=== PATIENT | female | born 1990 | race Caucasian/White ===

== ENCOUNTER 2016-11-28 09:40 | Emergency (ER) | payer BC, MEDICAID ==
[~2016-11-28] VITALS: Ht 172.7 cm; Wt 68.0 kg
[~2016-11-28 09:40] MED LIST: CIPROFLOXACIN500 M2 ORAL; IBUPROFEN600 MG ORAL; KEFLEX500 MG ORAL; NORCO 5-325 TA1 EACH ORAL; PHENAZOPYRIDIN200 MG ORAL
[2016-11-28] MEDS ORDERED: CLARITIN-D 241 EACH PO (10:06)
[2016-11-28 10:12] VITALS: BP 120/87
--- NOTE | 2016-11-28 10:12 | Emergency Room Report ---
History of Present Illness General Chief Complaint: Earache Source: Patient Present Illness HPI This is a 26-year-old female presented after having increased ear fullness and discomfort. The patient gradual onset of symptoms. She was noted to have some changes in her hearing. She states that she feels like there some fluid in her ears. She had denies recent activities in the water. She states that she's had some issues with nasal congestion. She denies sore throat. She has not been taking medications. Allergies: Coded Allergies: EPINEPHRINE (Unverified Allergy, Unknown, 11/17/14) Patient History Past Medical History: see triage record Last Menstrual Period: n/a depo Now: No Reviewed Nursing Documentation: PMH: Agreed, PSxH: Agreed Nursing Documentation-PMH Past Medical History: No Stated History Hx Gastrointestinal Problems: No - UTI DIAGNOSED 11/17/14 Review of Systems All Other Systems: negative except mentioned in HPI Physical Exam Vital Signs Date Time Temp Pulse Resp B/P Pulse Ox O2 Delivery O2 Flow Rate FiO2 11/28/16 09:54 98.4 72 16 120/87 98 Room Air General Appearance: well appearing, no apparent distress, alert, GCS 15 Head: normocephalic, atraumatic ENT: hearing grossly normal, normal voice Neck: full range of motion, supple Respiratory: no respiratory distress, speaking full sentences Musculoskeletal: no calf tenderness Neurologic: normal gait Psychiatric: mood/affect normal Skin: no rash Medical Decision Making Diagnostic Impression: Primary Impression: Earache symptoms in both ears ER Course Patient presented for ear pain. Differential diagnosis included was not limited to otitis media, malignant otitis externa, foreign body, cellulitis, mastoiditis, carotid dissection, myocardial infarction among others. Patient' s benign exam and does not appear to require any further imaging or laboratory testing at this time. The patient does not appear to have any erythema her TMs and there is no impacted cerumen. The patient appears have some signs of seasonal allergies. The patient was given prescription for Claritin D. she is advised followup with her primary care physician as needed. Chest X-Ray Diagnostic Results Chest X-Ray Ordered: No Last Vital Signs Date Time Temp Pulse Resp B/P Pulse Ox O2 Delivery O2 Flow Rate FiO2 11/28/16 09:54 98.4 72 16 120/87 98 Room Air Status: improved Disposition: HOME, SELF-CARE Condition: Stable Scripts Loratadine/Pseudoephedrine (CLARITIN-D 24 HOUR TABLET) 1 Each Tab.er.24h 1 TAB PO DAILY, #30 TAB Prov: Geovnay Baez 11/28/16 Patient Instructions: Serous Otitis Media Geovnay Baez Nov 28, 2016 10:12
[2016-11-28 10:17] VITALS: BP 120/87
== END 2016-11-28 10:30 | disposition home or self-care (01) ==
LOC: EMR 10:10
DX: H92.03 Otalgia, bilateral (principal); R09.81 Nasal congestion; Z88.8 Allergy status to other drugs, medicaments and biological substances
CPT/HCPCS: 99283

== ENCOUNTER 2019-12-25 18:58 | Emergency (ER) | payer BC, MEDICAID ==
[~2019-12-25] VITALS: Ht 172.7 cm; Wt 68.0 kg
[~2019-12-25 18:58] MED LIST changes: +CLARITIN-D 241 EACH PO
--- NOTE | 2019-12-25 19:15 | NUR ---
ED Nurse Note: Report given to DAWIT Dobson. Patient's HR 78 with pulse oximetry reading 100% on room air.
[2019-12-25 19:20] VITALS: BP 120/85
--- NOTE | 2019-12-25 19:20 | NUR ---
ED Nurse Note: Pt walked into ED from home for c/o SOB x 1 week and intermittent palpitations. Pt notes she has been increasingly weak and feels extremely SOB with any exertion. 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 Pt is aaox4. No fever noted upon triage and HR is in the 70's. Pt appears mildly short of breath when speaking in full sentences, but oxygen saturation is 98% on RA. No accessory muscle use noted when breathing. Pt is ambulatory with steady gait. No acute distress noted. IV line established, blood drawn and sent to lab. Will continue to monitor.
[2019-12-25 19:44] LABS: BASOPHILS % (AUTO) 1.4 % (0.0-2.0); EOSINOPHILS % (AUTO) 1.2 % (0.0-3.0); HEMATOCRIT 42.9 % (37.0-47.0); HEMOGLOBIN 14.1 G/DL (12.0-16.0); LYMPHOCYTES % (AUTO) 28.8 % (20.0-45.0); MEAN CORPUSCULAR VOLUME 84 FL (80-99); MONOCYTES % (AUTO) 6.3 % (1.0-10.0); NEUTROPHILS % (AUTO) 62.4 % (45.0-75.0); PLATELET COUNT 190 K/UL (150-450); RED BLOOD COUNT 5.11 M/UL (4.20-5.40); WHITE BLOOD COUNT 8.7 K/UL (4.8-10.8)
[2019-12-25 19:49] LABS: ANION GAP 14 mmol/L (5-15); APPEARANCE,URINE CLEAR; BILIRUBIN, URINE NEGATIVE (NEGATIVE); BLOOD UREA NITROGEN 13 mg/dL (7-18); CARBON DIOXIDE 24 MMOL/L (21-32); CHLORIDE 103 MMOL/L (98-107); COLOR,URINE YELLOW; CREATININE 0.7 MG/DL (0.55-1.30); GLUCOSE, URINE (UA) NEGATIVE (NEGATIVE); KETONES,URINE 1+ (NEGATIVE); LEUKOCYTE ESTERASE ,URINE 3+ (NEGATIVE); NITRITE,URINE NEGATIVE (NEGATIVE); PH,URINE 7 (4.5-8.0); POTASSIUM 3.8 MMOL/L (3.5-5.1); PROTEIN,URINE NEGATIVE (NEGATIVE); SODIUM 141 MMOL/L (136-145); UROBILINOGEN,URINE NORMAL MG/DL (0.0-1.0)
[2019-12-25 19:59] LABS: ALANINE AMINOTRANSFERASE 14 U/L (12-78); ALBUMIN 4.6 G/DL (3.4-5.0); ALBUMIN/GLOBULIN RATIO 1.5 (1.0-2.7); ALKALINE PHOSPHATASE 75 U/L (46-116); ASPARTATE AMINO TRANSFERASE 13 U/L (15-37); BILIRUBIN,TOTAL 0.4 MG/DL (0.2-1.0); CREATINE KINASE 36 U/L (26-308)
--- NOTE | 2019-12-25 20:00 | NUR ---
ED Nurse Note: Pt is sitting in RME room, no acute distress. IV fluids are infusing. Pt HR remains stable at 79. Will continue to monitor.
--- NOTE | 2019-12-25 20:20 | Emergency Room Report ---
History of Present Illness General Chief Complaint: Dyspnea/Respdistress Source: Patient Present Illness HPI 29-year-old female with no signal past medical history here complaining of 1 week of intermittent palpitation and shortness of breath with exertion. Denies any chest pain, abdominal pain, nausea vomiting diarrhea. Denies any loss of taste and smell, cough or congestion. 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 Denies any urinary symptoms. Denies . Denies tobacco smoke, drug use, alcohol intake. Is sitting comfortably with stable vital signs. O2 sat and temperature within normal limits. Reports that the shortness of breath is mainly worse when walking and waking up in the morning. Patient reports that after taking few deep breaths she feels better. Denies feeling better by putting. Denies any acid reflux and eating spicy acidic food. Denies constant palpitation. Denies any cardiac history. Reported palpitations usually in the middle of the night and is only intermittent. Denies lower leg edema or tightness. Allergies: Coded Allergies: No Known Allergies (Unverified , 12/25/19) COVID-19 Screening Contact w/high risk pt: No Recent Travel to affected area: No Experienced COVID-19 symptoms?: Yes COVID-19 symptoms experienced: Shortness of Breath COVID-19 Testing performed GANG PUSHER: No - 2 months ago COVID-19 Screening: Negative COVID-19 COVID-19 Testing Source: blood test Patient History Past Medical History: see triage record Past Surgical History: none Pertinent Family History: none Last Menstrual Period: 3 weeks ago Now: No Immunizations: UTD Reviewed Nursing Documentation: PMH: Agreed; PSxH: Agreed Nursing Documentation-PMH Past Medical History: No Stated History Hx Gastrointestinal Problems: No - UTI DIAGNOSED 11/17/14 Review of Systems All Other Systems: negative except mentioned in HPI Physical Exam Vital Signs Date Time Temp Pulse Resp B/P (MAP) Pulse Ox O2 Delivery O2 Flow Rate FiO2 12/25/19 19:00 97.9 78 16 120/85 (97) 98 Room Air Sp02 EP Interpretation: reviewed, normal General Appearance: no apparent distress, alert, GCS 15, non-toxic Head: normocephalic, atraumatic Eyes: bilateral eye normal inspection, bilateral eye PERRL ENT: hearing grossly normal, normal pharynx, no angioedema, normal voice Neck: full range of motion, supple/symm/no masses Respiratory: chest non-tender, lungs clear, normal breath sounds, no rhonchi, no respiratory distress, no wheezing, speaking full sentences Cardiovascular #1: regular rate, rhythm, no edema Gastrointestinal: normal bowel sounds, non tender, soft, non-distended, no guarding, no rebound Rectal: deferred Genitourinary: no CVA tenderness Musculoskeletal: back normal, no calf tenderness Neurologic: alert, motor strength/tone normal, oriented x3, sensory intact, responsive, speech normal Psychiatric: judgement/insight normal, memory normal, mood/affect normal, no suicidal/homicidal ideation Skin: no rash Lymphatic: no adenopathy Medical Decision Making PA Attestation All diagnoses and treatment plans were reviewed and discussed with my supervising physician Dr. Barrow Diagnostic Impression: Primary Impression: SOB (shortness of breath) Additional Impressions: Palpitation UTI (lower urinary tract infection) ER Course 29-year-old female with no signal past medical history here complaining of 1 week of intermittent palpitation and shortness of breath with exertion. Denies any chest pain, abdominal pain, nausea vomiting diarrhea. Denies any loss of taste and smell, cough or congestion. 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 Denies any urinary symptoms. Denies . Denies tobacco smoke, drug use, alcohol intake. Is sitting comfortably with stable vital signs. O2 sat and temperature within normal limits. Reports that the shortness of breath is mainly worse when walking and waking up in the morning. Patient reports that after taking few deep breaths she feels better. Denies feeling better by putting. Denies any acid reflux and eating spicy acidic food. Denies constant palpitation. Denies any cardiac history. Reported palpitations usually in the middle of the night and is only intermittent. Denies lower leg edema or tightness. Ddx considered but are not limited to: VT, Angina, COPD, GERD, palpitation, shortness of breath, coronavirus Vital signs: are WNL, pt. is afebrile H&PE are most consistent with shortness of breath, palpitation, UTI ORDERS: EKG, Chest XR, cardiac labs, rapid COVID testing, d-dimer Macrobid ED INTERVENTIONS: NS bolus DISCHARGE: At this time pt. is stable for d/c to home. Will provide printed patient care instructions, and any necessary prescriptions. Care plan and follow up instructions have been discussed with the patient prior to discharge. Advised patient to follow primary doctor for referral to electronic warfare operator, at this time no medications needed for palpitation patient to be followed up for echocardiogram by electronic warfare operator, if worsening symptoms return to the emergency room. EKG Diagnostic Results Rate: normal Rhythm: NSR ST Segments: no acute changes Other Impression No acute ST changes Chest X-Ray Diagnostic Results Chest X-Ray Diagnostic Results : Chest X-Ray Ordered: Yes # of Views/Limited/Complete: 1 View Indication: Shortness of Breath EP Interpretation: Yes IVY Xray: Interpretation reviewed, by supervising MD, and agrees with findings. Interpretation: no consolidation, no effusion, no pneumothorax Impression: No acute disease Electronically Signed by: Debbie Howard PA-C Last Vital Signs Date Time Temp Pulse Resp B/P (MAP) Pulse Ox O2 Delivery O2 Flow Rate FiO2 12/25/19 19:00 97.9 78 16 120/85 (97) 98 Room Air Disposition: HOME, SELF-CARE Condition: Stable Scripts Nitrofurantoin Monohyd/M-Cryst* (MACROBID 100 MG*) 100 Mg Capsule 100 MG ORAL EVERY 12 HOURS for 7 Days, #14 CAP Prov: Debbie Medina 12/25/19 Referrals: [facility],REFERRING (PCP) Patient Instructions: Palpitations, [id number], Shortness of Breath, Easy-to- Read, Urinary Tract Infection, [id number] Additional Instructions: increase oral hydration. see primary care provider for follow up and referral to electronic warfare operator. return to the ER if worsening symptoms. Debbie Medina Dec 25, 2019 20:20
[2019-12-25] MEDS ORDERED: NITROFURANTOIN100 M2 ORAL (20:21)
[2019-12-25 20:35] VITALS: BP 115/79
--- NOTE | 2019-12-25 20:35 | NUR ---
ER DISCHARGE NOTE: Patient is cleared to be discharged per ERMD, pt is aox4, on room air, with stable vital signs. pt was given dc and prescription instructions, pt was able to verbalize understanding, pt id band and iv site removed without complications. pt is able to ambulate with steady gait. pt took all belongings.
--- NOTE | 2019-12-26 14:31 | Diagnostic Imaging Report ---
Indication: Shortness of breath Technique: One view of the chest Comparison: none Findings: Lungs and pleural spaces are clear. Heart size is normal. Impression: No acute process
== END 2019-12-25 20:35 | disposition home or self-care (01) ==
LOC: EMR 19:30
DX: R06.02 Shortness of breath (principal); R00.2 Palpitations; N39.0 Urinary tract infection, site not specified
CPT/HCPCS: 36415; 71045; 80053; 80307; 81003; 81025; 82550; 83880; 84484; 85025; 85379; 87086; 93005; 96360; 99284; G0480; J7030; U0002

== ENCOUNTER 2020-01-13 17:35 | Emergency (ER) | payer BC, OTHER ==
[~2020-01-13] VITALS: Ht 172.7 cm; Wt 70.3 kg
[~2020-01-13 17:35] MED LIST changes: +NITROFURANTOIN100 M2 ORAL
[2020-01-13 17:45] VITALS: BP 122/80
--- NOTE | 2020-01-13 17:46 | NUR ---
ED Nurse Note: Patient walked in to ER from home due to left thigh pain and left leg pain since yesteday. Denies trauma or injury. Patient stated " I can not step on my left foot."
[2020-01-13] MEDS ORDERED: Ketorolac 30mg Inj IM ONE (18:00)
--- NOTE | 2020-01-13 18:18 | Emergency Room Report ---
History of Present Illness General Chief Complaint: Pain Source: Patient Present Illness HPI Pt. presents to the ED c/o 02/27 in severity acute onset of left thigh pain since yesterday. Pt. denies trauma or fall. She denies low back pain. Pt. reports having a constant sharp pain that is "deep in the thigh" She reports some calf tightness. She denies gluteal or posterior thigh pain or tenderness. She denies erythema, warmth, swelling or rash. Pt. denies abdominal or inguinal pain or tenderness. Pt. denies fevers or chills. She denies recent infections. She denies significant PmHx. She denies paresthesias or weakness. Pt. reports pain exacerbated with weight bearing on the left leg. She denies . She denies estrogen use. Denies tobacco use. She denies recent strenuous activity. She reports she does not work out. She reports she does not have thigh tenderness. Allergies: Coded Allergies: No Known Allergies (Unverified , 12/25/19) COVID-19 Screening Contact w/high risk pt: No Recent Travel to affected area: No Experienced COVID-19 symptoms?: No COVID-19 symptoms experienced: Shortness of Breath COVID-19 Testing performed STATION ATTENDANT: Yes COVID-19 Screening: Negative COVID-19 COVID-19 Testing Source: 4 weeks ago Patient History Past Medical History: see triage record Past Surgical History: none Pertinent Family History: none Last Menstrual Period: 01/09/20 Now: No Reviewed Nursing Documentation: PMH: Agreed; PSxH: Agreed Nursing Documentation-PMH Past Medical History: No History, Except For Hx Gastrointestinal Problems: No - UTI DIAGNOSED 11/17/14 Review of Systems All Other Systems: negative except mentioned in HPI Physical Exam Vital Signs Date Time Temp Pulse Resp B/P (MAP) Pulse Ox O2 Delivery O2 Flow Rate FiO2 01/13/20 17:39 98.2 69 16 122/80 (94) 98 Room Air Sp02 EP Interpretation: reviewed, normal General Appearance: no apparent distress, alert, GCS 15, non-toxic Head: normocephalic, atraumatic Eyes: bilateral eye normal inspection, bilateral eye PERRL ENT: hearing grossly normal, normal voice Neck: full range of motion Respiratory: lungs clear, normal breath sounds, speaking full sentences Cardiovascular #1: regular rate, rhythm, no edema, normal capillary refill Cardiovascular #2: 2+ dorsalis pedis (R), 2+ dorsalis pedis (L) Gastrointestinal: non tender, soft Musculoskeletal: back normal, normal range of motion, no calf tenderness, moves extm spontaneously, gait/station normal, non-tender, other - No ttp to the left thigh, gluteus, calf or L-spine. No pain with passive ROM until near full flexion of knee and hip. No bruises, no swelling. Neurologic: alert, motor strength/tone normal, oriented x3, sensory intact, responsive, speech normal, grossly normal, other - Pt. is compensating favoring the left leg. Psychiatric: judgement/insight normal Skin: no rash, normal color - no erythema or warmth. No bruises. Medical Decision Making PA Attcatie Walsh is my supervising Physician whom patient management has been discussed with. Diagnostic Impression: Primary Impression: Leg pain, left ER Course Pt. presents to the ED c/o 02/27 in severity acute onset of left thigh pain since yesterday. Pt. denies trauma or fall. She denies low back pain. Pt. reports having a constant sharp pain that is "deep in the thigh" She reports some calf tightness. She denies gluteal or posterior thigh pain or tenderness. She denies erythema, warmth, swelling or rash. Pt. denies abdominal or inguinal pain or tenderness. Pt. denies fevers or chills. She denies recent infections. She denies significant PmHx. She denies paresthesias or weakness. Pt. reports pain exacerbated with weight bearing on the left leg. She denies . She denies estrogen use. Denies tobacco use. She denies recent strenuous activity. She reports she does not work out. She reports she does not have thigh tenderness. Ddx considered but are not limited to Fracture, dislocation, contusion, tendonitis, Sprain/Strain/Spasm, Abscess, PAD, DVT, Osteomyelitis, Cancer, impingement syndrome just to name a few. Vital signs: are WNL, pt. is afebrile H&PE are most consistent with musculoskeletal injury will perform imaging to r/ o fractures/dislocations. ORDERS: - X-ray Left Hip, AP pelvis and Left femur - negative for fx, Dislocation, or significant soft tissue injury, per preliminary read in ED, and signed by IVY Gonzales, my supervising physician has reviewed, and agrees with my interpretation. - Urine Hcg ED INTERVENTIONS: - Toradol 30gm IM DISCHARGE: At this time pt. is stable for d/c to home. Will provide printed patient care instructions, and any necessary prescriptions. Care plan and follow up instructions have been discussed with the patient prior to discharge. Other X-Ray Diagnostic Results Other X-Ray Diagnostic Results #1: X-Ray ordered: Left hip with AP Pelvis # of Views/Limited Vs Complete: 2 View Indication: Pain EP Interpretation: Yes PA Xray: Interpretation reviewed, by supervising MD Interpretation: no dislocation, no soft tissue swelling, no fractures Impression: No acute disease Electronically Signed by: Ramonita Gonzales PA-C Other X-Ray Diagnostic Results #2: X-Ray ordered: Left Femur # of Views/Limited Vs Complete: 3 View Indication: Pain EP Interpretation: Yes IVY Xray: Interpretation reviewed, by supervising MD, and agrees with findings. Interpretation: no dislocation, no soft tissue swelling, no fractures Impression: No acute disease Electronically Signed by: Ramonita Gonzales PA-C CT/MRI/US Diagnostic Results CT/MRI/US Diagnostic Results : Imaging Test Ordered: Venous Duplex US Left lower extremity Impression " Negative for DVT " --- Per official radiology report- Please see report for specific details. Last Vital Signs Date Time Temp Pulse Resp B/P (MAP) Pulse Ox O2 Delivery O2 Flow Rate FiO2 01/13/20 17:45 98.2 16 122/80 98 Room Air 01/13/20 17:39 69 Disposition: HOME, SELF-CARE Condition: Stable Patient Instructions: Medical Screening Exam, Pain Without a Known Cause Additional Instructions: Take OTC NSAIDS medications as directed by manufacture. Follow up with a Primary Care Provider in 3-5 days, even if your symptoms have resolved. Return sooner to ED if new symptoms occur, or current symptoms become worse. - Please note that this Emergency Department Report was dictated using [employer] technology software, occasionally this can lead to erroneous entry secondary to interpretation by the dictation equipment. Ramonita Gonzales Jan 13, 2020 18:18
[2020-01-13] MEDS ORDERED: traMADol 50mg tab ORAL ONE (19:00)
--- NOTE | 2020-01-13 19:00 | NUR ---
ED Nurse Note: Patient stated" I am not for sure." Waiver was signed by patient.
--- NOTE | 2020-01-13 19:01 | NUR ---
ED Nurse Note: X ray at bed side
--- NOTE | 2020-01-13 19:04 | NUR ---
ED Nurse Note: US tech at bed side
--- NOTE | 2020-01-13 19:22 | Diagnostic Imaging Report ---
EXAM: XR Left Hip With Pelvis When Performed, 2 or 3 Views CLINICAL HISTORY: PAIN TECHNIQUE: Two or three views of the left hip with pelvis when performed. COMPARISON: None FINDINGS: Bones/joints: Unremarkable. No acute fracture. No dislocation. Soft tissues: Unremarkable. IMPRESSION: No acute fracture or dislocation.
--- NOTE | 2020-01-13 19:22 | Diagnostic Imaging Report ---
EXAM: XR Left Femur, 2 Views CLINICAL HISTORY: PAIN TECHNIQUE: Frontal and lateral views of the left femur. COMPARISON: None FINDINGS: Bones/joints: Unremarkable. No acute fracture. No dislocation. Soft tissues: Unremarkable. IMPRESSION: No acute fracture or dislocation.
[2020-01-13 19:52] VITALS: BP 121/83
--- NOTE | 2020-01-13 19:52 | NUR ---
ER DISCHARGE NOTE: Patient is cleared to be discharged home per ERMD, pt is aox4, 99% on room air, with stable vital signs. pt was given dc and prescription instructions, pt was able to verbalize understanding, pt id band removed. pt is able to ambulate with steady gait. pt took all belongings. pt verbalized understanding of discharge instructions.
--- NOTE | 2020-01-14 11:38 | Diagnostic Imaging Report ---
EXAM: ULTRASOUND Venous Duplex Lower Ext Uni CLINICAL HISTORY: Leg pain and edema. COMPARISON: None TECHNIQUE: Doppler examination include grayscale images obtained with and without compression, and color and spectral doppler analysis. FINDINGS: Doppler examination shows normal spontaneity, phasicity, compressibility in the left lower extremity. There is no thrombus identified by grayscale. Normal color and spectral flow is identified. There is no evidence of valvular incompetency or insufficiency. IMPRESSION: UNREMARKABLE VENOUS DUPLEX.
== END 2020-01-13 19:52 | disposition home or self-care (01) ==
LOC: EMR 18:09
DX: M79.652 Pain in left thigh (principal); R60.0 Localized edema
CPT/HCPCS: 73502; 73552; 93971; 96372; 99284; J1885